=== PATIENT | male | born 1955 | race Two or more races ===

== ENCOUNTER 2023-12-08 13:15 | Outpatient (AMB) | payer OTHER, SELFPAY ==
--- NOTE | 2023-12-08 13:18 | MHC.OFFVIS ---
Vital Signs 12/08/23 13:19 Height 5 ft 1 in Weight 163 lb BMI 30.8 BP 114/82 Blood Pressure Location Rt brachial Position Sitting Pulse 81 Pulse Source Pulse Oximeter Pulse Oximetry (%) 93 Oxygen Delivery Method Room Air Intake Visit Reasons: ENP-Migraine/small vessel disease/abn MRI Intake Note: Patient presents form migraines. patient has had migraines for 20+ years and taking zolmitriptan which helps tremendously. Allergies codeine Allergy (Severe, Verified 12/08/23 13:23) hives Medication List - Last Reconciled 12/08/23 by ALEJO Marrero aspirin 81 mg PO DAILY atorvastatin 40 mg PO DAILY cetirizine 10 mg PO DAILY cholecalciferol (vitamin D3) 50 mcg PO DAILY fluticasone propionate 50 mcg/actuation 2 sprays intranasal DAILY omeprazole 20 mg PO DAILY zolmitriptan mg PO HPI Comments Details: Right-handed 67-yr-old female presents for new pt evaluation of headache disorder. Pt reports she has had migraine for at least 30 yrs w/o known precipitating cause. She notes the migraine was pretty consistent, but they decreased in 2022, however they returned in 2023, and now are more frequent and bothersome, finding the migraine is affecting her daily activities more. Pt preveiously was seen by neurology in [place] many yrs ago, but has not seen enuro in yrs. PMH and ROS are notable for:? General: glasses. Musculoskeletal disorders or injury: stiff neck, stiff shoulders Respiratory d/o: seasonal and environmental allergies CV disease: HTN HLD : h/o kidney stones GI d/o: Occassaniol GERD IBS Constipation at x's. 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 Has HST a few yrs ago- was never given results- ? SMS. Caffeine use: 1 cups per day Substance use: denies Exercise:?some exercise- some weight training, stretching at home. trying to lose weight. 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 Family planning: none Headache questionnaire:? Typical headache characteristics: Prodrome symptoms: denies- but sometimes has facial swelling. Aura: rarely may see a floating spot before the headache Pain intensity: Starts mild and can become severe Location, quality, characteristics: Unilateral (can be right or left sided, rarely bilateral) and frontal pressure to screwing type pain. If migraine is r/t allergies- it is more frontal/crown a/w bilateral facial/eye swelling. Associated symptoms: photophobia, osmophobia, allodynia, nausea, vomiting, not right in space dizziness, lightheadedness, fatigue, cognitive difficulties, activity intolerance. Sometimes ipslateral (right or left) tingling, swelling sensation. Postdrome: lingering headache, feels like she was run over by a truck. Triggers: allergies, poor sleep, weather changes Time of day: Will wake up w/ start of a headache or later in the day Duration and Frequency: Can last 3-4 days w/o tx. Frequency is weekly- a few times a week. How does headache impact your life? Unable to do her daily activities. MIDAS disability grade: IV Current acute medication use/interventions: Zomig 5mg helps some- receives 6 tabs per month. May take w/ Ibuprofen. Current preventative medication use: None. Uses her Flonase to prevent sinus s/s. Non-pharmacological interventions: Rest. [facility] Medical History (Updated 12/18/23 @ 13:51 by ALEJO Marrero) Osteoporosis Hyperlipidemia Headache Surgical History (Updated 12/08/23 @ 13:24 by ISIDORO Garcia) H/O eye surgery Hx of tonsillectomy H/O section Hx of appendectomy Family History (Updated 12/08/23 @ 13:25 by ISIDORO Garcia) Father Diabetes Heart disease Mother Diabetes Social History (Updated 12/08/23 @ 13:25 by ISIDORO Garcia) Alcohol intake: never Patient Tobacco Use Status: Never used Tobacco Physical Exam Vital Signs: Last Vital Signs Pulse 81 12/08/23 13:19 BP 114/82 12/08/23 13:19 Pulse Ox 93 12/08/23 13:19 Oxygen Delivery Method Room Air 12/08/23 13:19 BMI result Body Mass Index 30.8 Const Orientation/consciousness: patient oriented x3 Resp Effort & Inspection: normal respiratory effort and able to speak in complete sentences Neuro Other: No palpable scalp tenderness. General: patient oriented x3 Cranial nerves: Yes CN's II-XII intact bilaterally Cognition (Neuro): normal cognition Gait exam (Neuro): Normal gait present Motor exam (neuro): 5/5 motor strength present throughout Deep tendon reflexes (DTR's): Right triceps reflex intensity grade: 2+, Left triceps reflex intensity grade: 2+, Rt Biceps (C5, C6): 2+, Left biceps reflex intensity grade: 2+, Right brachioradialis reflex intensity grade: 2+, Left brachioradialis reflex intensity grade: 2+, Right patellar reflex intensity grade: 2+ and Left patellar reflex intensity grade: 2+ Coordination: [id number] test normal, tandem gait normal and Romberg test negative Pupils: Normal pupillary reactivity/response: bilateral Psych Appearance: grossly normal Mental Status: mental status grossly normal Speech and movement: Normal speech and movement present Affect: normal affect Attitude: cooperative Thought process: Normal thought process present Assessment & Plan Assessment & Plan (1) Migraine with aura: Comment: Occasionally Code(s): G43.109 - Migraine with aura, not intractable, without status migrainosus Category: Medical (2) Migraine without aura: Code(s): G43.009 - Migraine without aura, not intractable, without status migrainosus Category: Medical (3) Moderate obstructive sleep apnea: Comment: per 2021 HST (at [facility]). AHI 19/hr, average SPO2 91% w/ O2 annie 62%. Code(s): G47.33 - Obstructive sleep apnea (adult) (pediatric) Category: Medical Plan Pt to call us w/ full list of previous meds tried. Will request last HST report. For overall headache management: Optimize good self-care, including but not limited to maintaining a healthy diet, adequate fluid intake, adequate sleep, and engaging in regular physical activity. Track headaches, especially after any treatment regimen changes. Migraine [employer] is one of many headache tracking apps. For acute headache treatment: Discussed importance of taking acute medications at the first sign of headache, however stressed importance of avoiding acute medication overuse (especially with combined headache medications). Continue Zomig 5mg prn. May take w/ OTC Ibuprofen 400-600mgh q 4-6hrs prn. Previous acute migraine medication trials: Unsure. Acute migraine medication contraindications: None at this time For headache prevention medication: Preventative medications should be taken routinely as prescribed for best effect, it may take several weeks for full effect to take effect. Start Riboflavin 400mg qam Start Magnesium 400mg qhs Start Aimovig 140mg sc q month. Potential adverse effects of Aimovig, including but not limited to injection site reactions, cramps, constipation, increase in blood pressure. Previous migraine prevention medication trials: Amitriptyline- in effective. Migraine prevention medication contraindications: Topiramate d/t h/o kidney stones. Pt seen in collaboration w/ Dr Lisa Strange. Pt to follow-up in 4-6 months or sooner prn. Addendum= Reviewed previous HST report from 2021, pt would benfit from trying APAP [id number]. Will f/u with pt to discuss trying APAP vs repeating HST to assess status of sleep apnea. Medications: New erenumab-aooe (Aimovig Autoinjector) 140 mg subcut ONCE 1 mL 6RF 30 days riboflavin (vitamin B2) 400 mg PO DAILY 30 tabs 6RF 30 days zolmitriptan may repeat in 2 hrs, max 2 tabs per day 5 mg PO ONCE PRN 12 tabs 6RF migraine headache 30 days magnesium oxide may hold for loose stools 400 mg PO BEDTIME 30 tabs 6RF 30 days Coding Level of Care Code New Pt Level 4 (83944) Diagnoses Migraine with aura G43.109 Migraine without aura G43.009 Moderate obstructive sleep apnea G47.33
[2023-12-08 13:19] VITALS: BP 114/82; PULSE 81; O2SAT 93; BMI 30.8
== END 2023-12-08 14:20 | disposition home or self-care (01) ==
PROVIDERS: PCP Family Medicine; Visit Provider Nurse Practitioner Family
DX: G43.109 Migraine with aura, not intractable, without status migrainosus (principal); G43.009 Migraine without aura, not intractable, without status migrainosus; G47.33 Obstructive sleep apnea (adult) (pediatric)
CPT/HCPCS: 99204

== ENCOUNTER → 2023-12-08 13:15 | Outpatient (BNVA) | payer OTHER, SELFPAY | PROVIDERS: PCP Family Medicine; Visit Provider Nurse Practitioner Family ==

== ENCOUNTER 2024-02-23 10:03 | Outpatient (AMB) | payer OTHER, SELFPAY ==
[2024-02-23 10:04] VITALS: BMI 31.9
--- NOTE | 2024-02-23 10:04 | MHC.OFFVIS ---
Vital Signs 02/23/24 10:04 Height 5 ft 1 in Weight 169 lb BMI 31.9 Intake Visit Reasons: Follow up Intake Note: Patient presents for follow up migraines. Patient has had a migraine all this week. Allergies codeine Allergy (Severe, Verified 02/23/24 10:06) hives Medication List - Last Reconciled 02/23/24 by ALEJO Marrero aspirin 81 mg PO DAILY atorvastatin 40 mg PO DAILY cetirizine 10 mg PO DAILY cholecalciferol (vitamin D3) 50 mcg PO DAILY erenumab-aooe (Aimovig Autoinjector) 140 mg subcut ONCE 30 days fluticasone propionate 50 mcg/actuation 2 sprays intranasal DAILY magnesium oxide 400 mg PO BEDTIME 30 days omeprazole 20 mg PO DAILY riboflavin (vitamin B2) 400 mg PO DAILY 30 days zolmitriptan 5 mg PO ONCE PRN 30 days HPI Comments Details: Right-handed 67-yr-old female presents for f/u of migraine and sleep sleep disorder. Pt denies any interval medical changes. She did start Riboflavin and mga. She never rec'd the Aimovig. She has noticed an uptick in migraine attacks in the last 2 weeks - which she attributes to season change and allergies. She does use allergy tx, but this does not seem to help either her headaches or allergies. Prone to nasal congestion. Has run out of flonase. She reports 15 migraine days per week. The zomig is helpful, but sometimes the migraine does come back. Uses the zomig in [place] evening, as it makes her sleepy- which can be helpful when she is not sleeping well overall. We rec'd her 2021 HST rpeort which showed AHI 29.6/hr w/ O2 annie 62%. Endorses: Snoring, Excessive daytime sleepiness, Fatigue Initial HPI from 12/08/23: Pt reports she has had migraine for at least 30 yrs w/o known precipitating cause. She notes the migraine was pretty consistent, but they decreased in 2022, however they returned in 2023, and now are more frequent and bothersome, finding the migraine is affecting her daily activities more. Pt preveiously was seen by neurology in [place] many yrs ago, but has not seen enuro in yrs. PMH and ROS are notable for:? General: glasses. Musculoskeletal disorders or injury: stiff neck, stiff shoulders Respiratory d/o: seasonal and environmental allergies CV disease: HTN HLD : h/o kidney stones GI d/o: Occassaniol GERD IBS Constipation at x's. 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 Had HST a few yrs ago- was never given results- ? SMS. Caffeine use: 1 cups per day Substance use: denies Exercise:?some exercise- some weight training, stretching at home. trying to lose weight. 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 Family planning: none Headache questionnaire:? Typical headache characteristics: Prodrome symptoms: denies- but sometimes has facial swelling. Aura: rarely may see a floating spot before the headache Pain intensity: Starts mild and can become severe Location, quality, characteristics: Unilateral (can be right or left sided, rarely bilateral) and frontal pressure to screwing type pain. If migraine is r/t allergies- it is more frontal/crown a/w bilateral facial/eye swelling. Associated symptoms: photophobia, osmophobia, allodynia, nausea, vomiting, not right in space dizziness, lightheadedness, fatigue, cognitive difficulties, activity intolerance. Sometimes ipslateral (right or left) tingling, swelling sensation. Postdrome: lingering headache, feels like she was run over by a truck. Triggers: allergies, poor sleep, weather changes Time of day: Will wake up w/ start of a headache or later in the day Duration and Frequency: Can last 3-4 days w/o tx. Frequency is weekly- a few times a week. How does headache impact your life? Unable to do her daily activities. MIDAS disability grade: IV Current acute medication use/interventions: Zomig 5mg helps some- receives 6 tabs per month. May take w/ Ibuprofen. Current preventative medication use: None. Uses her Flonase to prevent sinus s/s. Non-pharmacological interventions: Rest. [facility] Medical History (Updated 12/18/23 @ 13:51 by ALEJO Marrero) Osteoporosis Hyperlipidemia Headache Surgical History H/O eye surgery Hx of tonsillectomy H/O section Hx of appendectomy Family History Father Diabetes Heart disease Mother Diabetes Social History Alcohol intake: never Patient Tobacco Use Status: Never used Tobacco Physical Exam Vital Signs: BMI result Body Mass Index 31.9 Const Orientation/consciousness: patient oriented x3 Resp Effort & Inspection: normal respiratory effort and able to speak in complete sentences Neuro General: patient oriented x3 Cranial nerves: Yes CN's II-XII intact bilaterally Cognition (Neuro): normal cognition Gait exam (Neuro): Normal gait present Motor exam (neuro): 5/5 motor strength present throughout Psych Appearance: grossly normal Mental Status: mental status grossly normal Speech and movement: Normal speech and movement present Affect: normal affect Attitude: cooperative Thought process: Normal thought process present Assessment & Plan Assessment & Plan (1) Migraine with aura: Comment: Occasionally Code(s): G43.109 - Migraine with aura, not intractable, without status migrainosus Category: Medical (2) Migraine without aura: Code(s): G43.009 - Migraine without aura, not intractable, without status migrainosus Category: Medical (3) Moderate obstructive sleep apnea: Comment: per 2021 HST (at [facility]). AHI 19/hr, average SPO2 91% w/ O2 annie 62%. Code(s): G47.33 - Obstructive sleep apnea (adult) (pediatric) Category: Medical Plan For moderate KALYAN: Pt advised to undergo HST to assess status of sleep apnea. Trial saline rinse- such as pressurized saline spray, f/b Flonase- we will refill, and f/b trail of Azelastine nasal spray. For overall headache management: Optimize good self-care, including but not limited to maintaining a healthy diet, adequate fluid intake, adequate sleep, and engaging in regular physical activity. Track headaches, especially after any treatment regimen changes. Migraine [employer] is one of many headache tracking apps. For acute headache treatment: Discussed importance of taking acute medications at the first sign of headache, however reviewed importance of avoiding acute medication overuse. As zomig makes her very sleepy and cannot take during the day, Trial Sumatriptan 100mg tab, 1/2 - 1 tab (50-100mg) at onset of headache, may repeat in 2 hours. Max of 2 tabs (200mg) per 24 hours. May adjunct with OTC Tylenol 650mg q 4 hours, Ibuprofen 600mg q 6 hours, or Naproxen 440mg q 12 hrs prn. Potential adverse effects of triptans, include but are not limited to nausea, fatigue, chest tightness/tingling (usually passes within a few minutes), medication overuse headaches. Continue Zomig 5mg prn. May take w/ OTC Ibuprofen 400-600mgh q 4-6hrs prn. Previous acute migraine medication trials: Unsure. Acute migraine medication contraindications: None at this time For headache prevention medication: Preventative medications should be taken routinely as prescribed for best effect, it may take several weeks for full effect to take effect. Continue Riboflavin 400mg qam Continue Magnesium 400mg qhs Again start Aimovig 140mg sc q month- order resent today. Note PA expires 03/11/24. Potential adverse effects of Aimovig, including but not limited to injection site reactions, cramps, constipation, increase in blood pressure. Previous migraine prevention medication trials: Amitriptyline- in effective. Topiramate- ineffective. Migraine prevention medication contraindications: Topiramate d/t h/o kidney stones. Will follow-up upon review of above and patient to follow-up in clinic in 6 months or sooner prn. Orders: Orders RT home sleep study Today G47.33 - Obstructive sleep apnea (adult) (pediatric) Medications: New sumatriptan succinate (0.5 - 1 x 100 mg) 50 - 100 mg orally at onset of headache, may repeat in 2 hrs PRN; max 2 tabs per day or 4 tabs/week (may take with Ibuprofen) 30 days 12 tabs 6RF migraine headache azelastine administer into each nostril 2 sprays intranasal BID 30 days 30 mL 3RF Changed From fluticasone propionate 50 mcg/actuation 2 sprays intranasal DAILY To fluticasone propionate 50 mcg/actuation 2 sprays intranasal DAILY 30 days 16 grams 3RF Refilled erenumab-aooe (Aimovig Autoinjector) 140 mg subcut ONCE 30 days 1 mL 6RF Coding Level of Care Code Est Pt Level 4 (52577) Diagnoses Migraine with aura G43.109 Migraine without aura G43.009 Moderate obstructive sleep apnea G47.33
== END 2024-02-23 11:21 | disposition home or self-care (01) ==
PROVIDERS: PCP Family Medicine; Visit Provider Nurse Practitioner Family
DX: G43.109 Migraine with aura, not intractable, without status migrainosus (principal); G43.009 Migraine without aura, not intractable, without status migrainosus; G47.33 Obstructive sleep apnea (adult) (pediatric)
CPT/HCPCS: 99214

== ENCOUNTER 2024-08-20 10:26 | Outpatient (AMB) | payer OTHER, SELFPAY ==
--- NOTE | 2024-08-20 10:32 | A.OFFVIS_ITS ---
Vital Signs 08/20/24 10:34 Height 5 ft 1 in Weight 169 lb BMI 31.9 BP 120/84 Blood Pressure Location Rt brachial Position Sitting Pulse 83 Pulse Source Pulse Oximeter Pulse Oximetry (%) 96 Oxygen Delivery Method Room Air Intake Visit Reasons: 6 mo follow up Intake Note: Patient presents 6 month follow up for migraines. Medical Records Technician Required: No Accompanied by: Self / Same As Patient Allergies codeine Allergy (Severe, Verified 08/20/24 10:34) hives Medication List - Last Reconciled 08/20/24 by ALEJO Marrero aspirin 81 mg PO DAILY atorvastatin 40 mg PO DAILY azelastine 2 sprays intranasal BID 30 days cetirizine 10 mg PO DAILY cholecalciferol (vitamin D3) 50 mcg PO DAILY erenumab-aooe (Aimovig Autoinjector) 140 mg subcut ONCE 30 days fluticasone propionate 50 mcg/actuation 2 sprays intranasal DAILY 30 days magnesium oxide 400 mg PO BEDTIME 30 days omeprazole 20 mg PO DAILY riboflavin (vitamin B2) 400 mg PO DAILY 30 days riboflavin (vitamin B2) 400 mg PO DAILY sumatriptan succinate 50 - 100 mg orally at onset of headache, may repeat in 2 hrs PRN; max 2 tabs per day or 4 tabs/week (may take with Ibuprofen) 30 days zolmitriptan 5 mg PO ONCE PRN 30 days HPI Comments Details: Right-handed 68-yr-old female presents for f/u of migraine and sleep sleep disorder. Pt denies any interval medical changes. Pt reports her migraines have decreased except when she is having more allergy s/s. She states mag, B2, and azelastine do help- but has not had a refill on nasal sprays in some time. She reports 3-4 days per week when she is having allergy symptoms, and then none for a week or so. Did not start aimovig d/t cost- co-pay is greater than 300 dollars per month. The zomig is helpful. 2021 HST report which showed AHI 29.6/hr w/ O2 annie 62%. Having more difficulty falling asleep. Continues to endorse snoring, excessive daytime sleepiness, fatigue. She notes that she will often fall asleep after dinner watching TV the couch, however when she wakes up and does her bedtime routine, then she is wide awake again. She states that her watches the TV in bed, and it is loud as he is hard of hearing, so she does weight until later to go to bed. Pt did not have HST after the last visit- unclear why. Initial HPI from 12/08/23: Pt reports she has had migraine for at least 30 yrs w/o known precipitating cause. She notes the migraine was pretty consistent, but they decreased in 2022, however they returned in 2023, and now are more frequent and bothersome, finding the migraine is affecting her daily activities more. Pt preveiously was seen by neurology in [place] many yrs ago, but has not seen enuro in yrs. PMH and ROS are notable for:? General: glasses. Musculoskeletal disorders or injury: stiff neck, stiff shoulders Respiratory d/o: seasonal and environmental allergies CV disease: HTN HLD : h/o kidney stones GI d/o: Occassaniol GERD IBS Constipation at x's. 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 Had HST a few yrs ago- was never given results- ? SMS. Caffeine use: 1 cups per day Substance use: denies Exercise:?some exercise- some weight training, stretching at home. trying to lose weight. 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 Family planning: none Headache questionnaire:? Typical headache characteristics: Prodrome symptoms: denies- but sometimes has facial swelling. Aura: rarely may see a floating spot before the headache Pain intensity: Starts mild and can become severe Location, quality, characteristics: Unilateral (can be right or left sided, rarely bilateral) and frontal pressure to screwing type pain. If migraine is r/t allergies- it is more frontal/crown a/w bilateral facial/eye swelling. Associated symptoms: photophobia, osmophobia, allodynia, nausea, vomiting, not right in space dizziness, lightheadedness, fatigue, cognitive difficulties, activity intolerance. Sometimes ipslateral (right or left) tingling, swelling sensation. Postdrome: lingering headache, feels like she was run over by a truck. Triggers: allergies, poor sleep, weather changes Time of day: Will wake up w/ start of a headache or later in the day Duration and Frequency: Can last 3-4 days w/o tx. Frequency is weekly- a few times a week. How does headache impact your life? Unable to do her daily activities. MIDAS disability grade: IV Current acute medication use/interventions: Zomig 5mg helps some- receives 6 tabs per month. May take w/ Ibuprofen. Current preventative medication use: None. Uses her Flonase to prevent sinus s/s. Non-pharmacological interventions: Rest. [facility] Medical History (Updated 08/20/24 @ 13:04 by ALEJO Marrero) Osteoporosis Hyperlipidemia Headache Surgical History H/O eye surgery Hx of tonsillectomy H/O section Hx of appendectomy Family History Father Diabetes Heart disease Mother Diabetes Social History Alcohol intake: never Patient Tobacco Use Status: Never used Tobacco Physical Exam Vital Signs: Last Vital Signs Pulse 83 08/20/24 10:34 BP 120/84 08/20/24 10:34 Pulse Ox 96 08/20/24 10:34 Oxygen Delivery Method Room Air 08/20/24 10:34 BMI result Body Mass Index 31.9 Const Orientation/consciousness: patient oriented x3 Resp Effort & Inspection: normal respiratory effort and able to speak in complete sentences Neuro General: patient oriented x3 Cranial nerves: Yes CN's II-XII intact bilaterally Cognition (Neuro): normal cognition Gait exam (Neuro): Normal gait present Motor exam (neuro): 5/5 motor strength present throughout Psych Appearance: grossly normal Mental Status: mental status grossly normal Speech and movement: Normal speech and movement present Affect: normal affect Attitude: cooperative Thought process: Normal thought process present Assessment & Plan Assessment & Plan (1) Migraine without aura: Code(s): G43.009 - Migraine without aura, not intractable, without status migrainosus Category: Medical Qualifiers: Status migrainosus presence: without status migrainosus Intractability: not intractable Qualified Code(s): G43.009 - Migraine without aura, not intractable, without status migrainosus (2) Moderate obstructive sleep apnea: Comment: per 2021 HST (at [facility]). AHI 19/hr, average SPO2 91% w/ O2 annie 62%. Code(s): G47.33 - Obstructive sleep apnea (adult) (pediatric) Category: Medical (3) Sleep difficulties: Code(s): G47.9 - Sleep disorder, unspecified Category: Medical (4) Migraine with aura: Comment: Occasionally Code(s): G43.109 - Migraine with aura, not intractable, without status migrainosus Category: Medical Plan For moderate KALYAN: Pt is again advised to undergo HST to assess status of sleep apnea. Continue saline nasal rinse- such as pressurized saline spray, f/b Flonase, and f/b Azelastine nasal spray- we will refill. Reviewed general sleep education principles, including simple strategies to optimize sleep hygiene and sleep quality. List of sleep resources shared w/pt, such as the book Say Lori to Insomnia by Dr Jaxon Tillman. Patient may try using loupe ear plugs, to mitigate noise from her watching the television. To may also benefit from doing her bedtime routine, after dinner rather than right before bedtime, as this tends to wake her backup. For overall headache management: * Optimize good self-care, including but not limited to maintaining a healthy diet, adequate fluid intake, adequate sleep, and engaging in regular physical activity. * Track headaches, especially after any treatment regimen changes. Migraine [employer] is one of many headache tracking apps. For acute headache treatment: Discussed importance of taking acute medications at the first sign of headache, however reviewed importance of avoiding acute medication overuse. As zomahi makes her very sleepy and cannot take during the day. Sumatriptan 100mg tab, 1/2 - 1 tab (50-100mg) at onset of headache, may repeat in 2 hours. Max of 2 tabs (200mg) per 24 hours. May adjunct with OTC Tylenol 650mg q 4 hours, Ibuprofen 600mg q 6 hours, or Naproxen 440mg q 12 hrs prn. Potential adverse effects of triptans, include but are not limited to nausea, fatigue, chest tightness/tingling (usually passes within a few minutes), medication overuse headaches. Continue Zomig 5mg prn. May take w/ OTC Ibuprofen 400-600mgh q 4-6hrs prn. Previous acute migraine medication trials: Unsure. Acute migraine medication contraindications: None at this time For headache prevention medication: Preventative medications should be taken routinely as prescribed for best effect, it may take several weeks for full effect to take effect. Continue Riboflavin 400mg qam Continue Magnesium 400mg qhs Start c0-q 10 400mg qam- w/ food. Start cyproheptadine 4mg qhs- may help sleep initiation and allergy s/s as well. Reviewed common side effects, including sleepiness and increased gisell etite/weight gain. From Discontinue Aimovig 140mg sc q month- not an affordable option. Potential adverse effects of Aimovig, including but not limited to injection site reactions, cramps, constipation, increase in blood pressure. Previous migraine prevention medication trials: Amitriptyline- in effective. Topiramate- ineffective. Migraine prevention medication contraindications: Topiramate d/t h/o kidney stones. Will follow-up upon review of above and patient to follow-up in clinic in 6 months or sooner prn. Orders: Orders RT home sleep study Today G47.33 - Obstructive sleep apnea (adult) (pediatric), G47.9 - Sleep disorder, unspecified Medications: New coenzyme Q10 (CoQ-10) 400 mg (4 x 100 mg) PO DAILY 30 days 120 caps 3RF cyproheptadine 4 mg PO BEDTIME 30 days 30 tabs 3RF migraine prevention and allergies Refilled magnesium oxide may hold for loose stools 400 mg PO BEDTIME 30 days 30 tabs 6RF zolmitriptan may repeat in 2 hrs, max 2 tabs per day 5 mg PO ONCE 30 days PRN 12 tabs 6RF migraine headache fluticasone propionate 50 mcg/actuation 2 sprays intranasal DAILY 30 days 16 grams 6RF riboflavin (vitamin B2) 400 mg PO DAILY 30 days 30 tabs 6RF azelastine administer into each nostril 2 sprays intranasal BID 30 days 30 mL 6RF Discontinued erenumab-aooe (Aimovig Autoinjector) Discontinued Reason: Doctor's Order 140 mg subcut ONCE 30 days 1 mL 6RF Coding Level of Care Code Est Pt Level 4 (97125) Diagnoses Migraine without aura and without status migrainosus, not intractable G43.009 Status migrainosus presence: without status migrainosus Intractability: not intractable Moderate obstructive sleep apnea G47.33 Sleep difficulties G47.9 Migraine with aura G43.109
[2024-08-20 10:34] VITALS: BP 120/84; PULSE 83; O2SAT 96; BMI 31.9
--- OUTSIDE RECORDS SUMMARY | 2024-08-20 11:58 | XMS_ITS | Clinical Summary ---
Author Organization [facility] Address [address] [place] [address] Care Team Providers Care Police Superintendent Name Role Phone Unavailable Primary Care Provider Unavailabl e Allergies Active Allergy Reactions Criticality Noted Date Comments Codeine 08/07/2017 Medications Medication Sig Dispensed Refills Start Date End Date Status PROAIR HFA 108 (90 Base) MCG/ACT inhaler INHALE 2 PUFFS PO Q 4 H PRF COUGH OR WHEEZING 0 06/06/2017 Active cetirizine (ZYRTEC) 10 MG tablet TK 1 T PO D PRF ALLERGIES 5 06/26/2017 Active fluticasone (FLONASE) 50 MCG/ACT nasal spray SHAKE LQ AND U 2 SPRAYS IEN D 5 06/26/2017 Active ZOLMitriptan (ZOMIG) 5 MG tablet 0 07/26/2017 Active Family History Medical History Relation Name Comments Diabetes Father Heart disease Father Relation Name Status Comments Father Social History Tobacco Use Types Packs/Day Years Used Date Smoking Tobacco: Former Smokeless Tobacco: Never Comments:havent smoked in 40 yrs pt was a social smoker' Alcohol Use Standard Drinks/Week Comments No 0 (1 standard drink = 0.6 oz pur e alcohol) Sex and Gender Information Value Date Recorded Sex Assigned at Not on file Gender Identity Not on file Sexual Orientation Not on file Last Filed Vital Signs Vital Sign Reading Time Taken Comments Blood Pressure 120/70 08/07/2017 9:10 AM EDT Pulse - - Temperature - - Respiratory Rate - - Oxygen Saturation - - Inhaled Oxygen Concentration - - Weight 68.5 kg (151 lb) 08/07/2017 9:10 AM EDT Height 154.9 cm (5' 1 ) 08/07/2017 9:10 AM EDT Body Mass Index 28.53 08/07/2017 9:10 AM EDT Plan of Treatment Health Maintenance Due Date Last Done Comments Hepatitis C Screening 1955 COVID-19 Vaccine (#1) 06/14/1957 Depression Screening 1968 Preventative Health Evaluation 1974 DTap / Tdap / Td (1 - Tdap) 12/16/1975 Colon Cancer Screening (Colonoscopy) 2001 Breast Cancer Screening (Mammogram) 2006 Shingrix-Zoster Vaccine (1 of 2) 2006 Fall Risk Assessment 2021 Osteoporosis Screening (DEXA Scan) 2021 Pneumococcal Vaccine (1 of 1 - PCV) 2021 Influenza Vaccine (#1) 2023 RSV Adult > 60+ Yrs or Pregn ant (1 - 1-dose 75+ series) 12/16/2031 Hepatitis B Vaccines Aged Out No long er eligible based on patient's age to complete this topic RSV Ped < 20 months Aged Out No longe r eligible based on patient's age to complete this topic
== END 2024-08-20 11:15 | disposition home or self-care (01) ==
LOC: HO.HSMS 10:26
PROVIDERS: PCP Family Medicine; Visit Provider Nurse Practitioner Family
DX: G43.009 Migraine without aura, not intractable, without status migrainosus (principal); G47.33 Obstructive sleep apnea (adult) (pediatric); G47.9 Sleep disorder, unspecified; G43.109 Migraine with aura, not intractable, without status migrainosus
CPT/HCPCS: 99214

== ENCOUNTER → 2024-12-04 11:07 | Outpatient (REF) | payer MEDICARE, SELFPAY ==
--- OUTSIDE RECORDS SUMMARY | 2024-12-04 12:30 | XMS_ITS | Clinical Summary ---
Author Organization [employer] [facility] Address [address] [place] [address] Care Team Providers Care Polygraph Operator Name Role Phone Unavailable Primary Care Provider [...] 1 - PCV) 2021 Influenza Vaccine (#1) 2024 RSV Adult > 60+ Yrs or Pregn ant (1 - 1-dose 75+ series) 12/16/2031 Hepatitis B Vaccines Aged Out No long er eligible based on patient's age to complete this topic RSV Ped < 20 months Aged Out No longe r eligible based on patient's age to complete this topic
== END ==
LOC: HO.SL 11:07
PROVIDERS: PCP Family Medicine; Visit Provider Nurse Practitioner Family
DX: G47.33 Obstructive sleep apnea (adult) (pediatric) (principal)
CPT/HCPCS: 95806

== ENCOUNTER → 2025-03-31 19:30 | Outpatient (REF) | payer MEDICARE, SELFPAY ==
--- OUTSIDE RECORDS SUMMARY | 2025-03-31 22:55 | XMS_ITS | Clinical Summary ---
Author Organization [facility] Prior to 09/14/24 Address [address] [place] [address] Care Team Providers Care Procedures Rn Name Role Phone Unavailable Primary Care Provider [...]
--- OUTSIDE RECORDS SUMMARY | 2025-03-31 22:55 | XMS_ITS | Clinical Summary ---
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 08/29/19 24 Active omeprazole (PriLOSEC) [address] capsule Take 1 Capsule by mouth daily for 90 days. 08/04/19 24 Active riboflavin (VITAMIN B2) 400 mg tablet Take 1 tablet (400 mg total) by mouth 1 (one) time each day. 08/21/19 25 Active magnesium oxide (MAG-OX) 400 mg (241.3 elemental magnesium) tablet Take 1 tablet (400 mg total) by mouth 1 (one) time each day. 09/12/19 25 Active cyproheptadine (PERIACTIN) 4 mg tablet Take 1 tablet (4 mg total) by mouth at bedtime. 08/21/19 25 Active azelastine (ASTELIN) 137 mcg (0.1 %) nasal spray Administer 2 sprays into each nostril 2 (two) times a day. 08/22/19 25 Active ZOLMitriptan (ZOMIG) 5 mg tablet Take 1 tablet (5 mg total) by mouth 1 (one) time if needed for migraine. May repeat in 2 hours if unresolved. Do not exceed 10 mg in 24 hours. 3 tablet 3 09/25/19 25 Active cholecalciferol (VITAMIN D-3) 50 mcg (2,000 unit) capsule TAKE 1 CAPSULE BY MOUTH EVERY DAY 90 capsule 1 10/04/19 25 Active cetirizine (ZyrTEC) 10 mg tablet TAKE 1 TABLET BY MOUTH DAILY 90 tablet 1 10/04/19 25 Active hydroCHLOROthiazid e (HYDRODIURIL) 25 mg tabletIndications: Primary hypertension Take 1 tablet (25 mg total) by mouth 1 (one) time each day. 90 each 1 11/12/19 25 026 Active bisacodyL (DULCOLAX) 5 mg EC tablet Take 2 tablets by mouth right before beginning bowel prep. See instructions provided by the office 2 tablet 11/15/19 25 Active atorvastatin (LIPITOR) 40 mg tabletIndications: Mixed hyperlipidemia Take 1 tablet (40 mg total) by mouth at bedtime. at bedtime. 90 tablet 1 12/10/19 25 026 Active alendronate (FOSAMAX) 70 mg tablet Take 1 tablet (70 mg total) by mouth every 7 (seven) days. 1 tablet weekly on an empty stomach, remain upright for at least 30 minutes 4 each 01/03/20 25 026 Active aspirin 81 mg EC tablet TAKE 1 TABLET BY MOUTH EVERY DAY 90 tablet 1 02/01/20 25 Active Active Problems Problem Noted Date Diagnosed Date Venous insufficiency of right leg 01/28/2025 Primary hypertension 12/09/2024 Assessment & Plan (12/09/2024 11:28 AM EDT): Well controlled Continue HCTZ 25mg daily Prediabetes 11/08/2024 Assessment & Plan (12/09/2024 11:28 AM EDT): Continue with lifestyle mgt Orders: Hemoglobin A1c; Future Assessment & Plan (11/11/2024 2:55 PM EDT): Due for updated A1c. Her last A1c in July was 5.7. Orders: Hemoglobin A1c; Future Class 1 obesity due to exces s calories with serious comorbidity and body mass index (BMI) of 30.0 to 30.9 in adult 01/26/2024 Cerebral microvascular disease 11/03/2023 Degenerative joint disease (DJD) of lumbar spine 08/07/2023 Calcific Achilles tendinitis of right lower extr emity 08/07/2023 Gastroesophageal reflux disease without esophagi tis 08/04/2023 Primary insomnia 08/04/2023 Seasonal allergic rhinitis 05/19/2023 Nonalcoholic fatty liver disease 08/30/2018 Hyperlipidemia 03/17/2016 Assessment & Plan (12/09/2024 11:28 AM EDT): Continue atorvastatin Orders: atorvastatin (LIPITOR) 40 mg tablet; Take 1 tablet (40 mg total) by mouth at bedtime. at bedtime. Osteoporosis 07/14/2015 Assessment & Plan (12/09/2024 11:28 AM EDT): Referred to endocrinology for consideration of prolia or reclast Continue vitamin D daily Orders: Ambulatory referral to Endocrinology; Future Hematuria 10/15/2013 Overview (01/26/2024): Dr. Adrian Migraines 07/20/2011 Overview (01/26/2024): Worse in past; triggered by allergies. Zolmig prn and also takes allergy medication RBBB (right bundle branch block) 07/20/2011 Overview (01/26/2024): 09/29- stress echo nad Noted on ECG 07/20/11 in V1 only. Holter NSR w/1 PVC and 4 PACs Stress ECHO normal Encounters Date Type Department Care Team Description 01/28/2025 Results Follow-Up Adult Medicine [address] [phone] Martina Pedraza MD 01/27/2025 10:00 AM EDT Ancillary Procedure [facility] [address] [place] [address] Varicose veins of both legs with edema 01/02/2025 11:30 AM EDT Office Visit Endocrinology [address] [phone] Cheli Lama PA Osteoporosis, unspecified osteoporosis type, unspecified pathological fracture presence (Primary Dx) from Last 3 Months Immunizations Immunization Administration Dates Next Due Influenza Quadravalent, MDCK , 0.5ml, preservative free (Flucelvax) 6mo and older 03/02/2018 Influenza trivalent, with pr eservative (Fluzone; Afluria) 6mo and older 02/21/2014 Moderna SARS-CoV-2 COVID-19, mRNA, LNP-S, preservative free 08/13/2020,07/16/2020 Pneumococcal conjugate 20 va lent (Prevnar 20, PCV 20) 2mo and older 08/04/2023 Tdap Tetanus diptheria acell ular pertussis (Boostrix; Adacel) 7yo and older 08/04/2023,07/20/2011 Surgical History Surgery Date Site/Laterality Comments SECTION PROCEDURE: IA DELIVERY ONLY; COMMENT: x3 OTHER SURGICAL HISTORY PROCEDURE: IA LIG/TRNSXJ FLP TUBE ABDL/VAG APPR UNI/BI EYE SURGERY PROCEDURE: HISTORICAL EYE SURGERY; COMMENT: corrective (lazy eye) x 3 TONSILLECTOMY PROCEDURE: HISTORICAL TONSILLECTOMY COLONOSCOPY 10/13/14 PROCEDURE: HISTORICAL COLONOSCOPY; COMMENT: hemorrhoids; repeat in 10 yrs BREAST BIOPSY Right PROCEDURE: BX BREAST; PERC NEEDLE CORE W/IMAG GUID; COMMENT: ? side cyst drained/removed Medical History Medical History Date Comments Other specified personal his tory presenting hazards to health(V15.89) 1999 DX:Other specifie d personal history presenting hazards to health(V15.89); COMMENT: colpo ISHMAEL I Nonalcoholic fatty liver disease 08/30/2018 DX:Nonalcoholic fatty liver disease Hyperlipidemia Hypertension GERD (gastroesophageal reflux disease) History of kidney stones Family History Medical History Relation Name Comments Ovarian cancer Aunt maternal; and mothers cousin Breast cancer Maternal Grandmother 70s Diabetes Sister Colon cancer Neg Hx Relation Name Status Comments Aunt Brother Alive healthy Father Quad bypass; ca rotid art stents, mini strokes, DM Maternal Grandmother 70s Mother Alive healthy Sister Alive 2 sister DM ( obese) Social History Tobacco Use Types Packs/Day Years Used Date Smoking Tobacco: Former Cigarettes 6 0 04/17/1973 - 04/17/1979 Smokeless Tobacco: Never Tobacco Cessation:Counseling Given: Not Answered Alcohol Use Standard Drinks/Week Comments No 0 (1 standard drink = 0.6 oz pur e alcohol) Housing Instability Answer Date Recorde d Are you worried that in the next 2 months you may not have stable housing? No 11/10/2024 Food Access & Nutrition Answer Date Rec orded Do you have access to a vari ety of food including fruits and vegetables? Yes 11/10/2024 Access to Healthcare Answer Date Record ed Within the last 3 months, ho w many times did you visit the emergency department for your medical care? 0 11/10/2024 Health Literacy Answer Date Recorded How often do you need to hav e someone help you when you read instructions, pamphlets, or other written material from your doctor or pharmacy? Never 11/10/2024 Caregiver: How often do you need to have someone help you when you read instructions, pamphlets, or other written material from your doctor or pharmacy? Not on file 11/10/2024 Financial Risk Answer Date Recorded How hard is it for you to pa y for the very basics like food, housing, medical care, and air conditioning / heating? Not very hard 11/10/2024 Transportation Answer Date Recorded Has the lack of transportati on kept you from meetings, work, or from getting things needed for daily living? No Has the lack of transportati on kept you from medical appointments or from getting medications? No 11/10/2024 Social Isolation Answer Date Recorded How often do you feel lonely or isolated from th ose around you? Rarely 11/10/2024 Food Risk Answer Date Recorded Within the past 12 months we worried whether our food would run out before we got money to buy more. Never true 11/10/2024 Within the past 12 months th e food we bought just didn't last and we didn't have money to get more. Never true 11/10/2024 Dependent Care Answer Date Recorded Do you need help finding or paying for care for your loved ones. For example, child care centre director or elderly care for an older adult? No 11/10/2024 Education Answer Date Recorded Do you think completing more education or training, like finishing a GED, going to college, or learning a trade, would be helpful for you? N/A 11/10/2024 Employment and Income Answer Date Recor ded During the last four weeks, have you been actively looking for work? No 11/10/2024 Living Situation Answer Date Recorded What is your living situation? Unrecognized valu e 11/10/2024 Interpersonal Safety Answer Date Record ed Physical Abuse Unrecognized value 11/28/2024 Verbal Abuse Unrecognized value 11/28/2024 Comments No Sex and Gender Information Value Date Recorded Sex Assigned at Female 09/23/2024 11:43 AM EDT Legal Sex Female 5:41 PM EST Gender Identity Female 09/23/2024 11:43 AM EDT Sexual Orientation Not on file Obstetrics History Para Term AB IAB SAB Ectopic Multiple Livin g Live Births 3 3 3 3 Date Outcome GA Total Labor Labor/2nd/3rd Weight Sex Type Anes PTL Pia A1 A5 Name Clin Term Term Term Last Filed Vital Signs Vital Sign Reading Time Taken Comments Blood Pressure 124/82 01/02/2025 11:32 AM EDT Pulse 75 01/02/2025 11:32 AM EDT Temperature 36.1 C (96.9 F) 01/02/2025 11:32 AM EDT Respiratory Rate 16 12/09/2024 10:58 AM EDT Oxygen Saturation 100% 11/28/2024 2:24 PM EDT Inhaled Oxygen Concentration - - Weight 76.2 kg (168 lb) 01/02/2025 11:32 AM EDT Height 154.9 cm (5' 1 ) 01/02/2025 11:32 AM EDT Body Mass Index 31.74 01/02/2025 11:32 AM EDT Plan of Treatment Upcoming Encounters Date Type Department Care Team (Late st Contact Info) Description 04/02/2025 10:00 AM EST Office Visit Adult Medicine [address] [phone] Martina Pedraza MD [address] [place] [address] 04/29/2025 11:30 AM EST Office Visit Endocrinology - [place] [address] [place] [address] Nikki Shankar PA [address] [place] [address] 04/29/2025 1:30 PM EST Consult Vascular Surgery - [place] [address] [place] [address] Tami Ibarra PA [address] [facility] [address] [place] [address] Health Maintenance Due Date Last Done Comments Medicare Annual Wellness Visit 11/02/2024 11/03/2023 COVID-19 Vaccine ( season) 2024 08/13/2020, 07/16/2020 Zoster Vaccines (2 of 2) 02/11/2025 12/17/2024 Hypertension/CHF/CAD Annual BMP Blood Test 11/07/2025 11/07/2024, 12/20/2023, 12/20/2023 Social Influencers of Health Screening 11/10/2025 11/10/2024 Falls Risk Assessment 11/28/2025 11/28/2024, 024 Breast Cancer Screening 11/29/2026 11/30/19, 05/19/2023, 05/16/2022, Additional history exists Cholesterol Screening (Lipid Panel) 11/07/2029 11/07/2024, 12/20/2023, 12/20/2023 RSV Immunization Adult Patients (1 - 1-dose 75+ series) 12/16/2031 DTaP,Tdap,and Td Vaccines (3 - Td or Tdap) 08/03/2033 08/04/2023, 07/20/2011 Colorectal Cancer Screening: Colonoscopy 11/28/2034 11/28/2024, 10/13/2014 Osteoporosis Screening (Bone Density Screening) 12/03/2034 12/03/2024, 10/08/2020, 08/08/2016 Hepatitis C Screening Completed 09/05/2016 Pneumococcal Vaccine: 50+ Years Completed 08/04/2023 Depression Screening Completed 11/10/2024, 11/03/19 24 Influenza Vaccine Completed 12/17/2024, , 02/21/2014 HIB Vaccines Aged Out No longer eligi ble based on patient's age to complete this topic HPV Vaccines Aged Out No longer eligi ble based on patient's age to complete this topic Hepatitis A Vaccines Aged Out No long er eligible based on patient's age to complete this topic Hepatitis B Vaccines Aged Out No long er eligible based on patient's age to complete this topic IPV Vaccines Aged Out No longer eligi ble based on patient's age to complete this topic MMR Vaccines Aged Out No longer eligi ble based on patient's age to complete this topic Meningococcal ACWY Vaccine Aged Out N o longer eligible based on patient's age to complete this topic Meningococcal B Vaccine Aged Out No l onger eligible based on patient's age to complete this topic RSV Immunization Patients Under 20 months Aged Out No longer eligible based on patient's age to complete this topic Varicella Vaccines Aged Out No longer eligible based on patient's age to complete this topic Procedures Procedure Name Priority Date/Time Associated Diagnosis Comments VAS US DUPLEX LOWER EXT VENOUS INSUFFICIENCY BILATERAL Routine 01/27/2025 10:30 AM EDT Varicose veins of both legs with edema BD BONE DENSITY DXA AXIAL SKELETON Routine 12/03/2024 2:38 PM EDT Encounter for screening for osteoporosis Asymptomatic menopausal state MG MAMMO DIGITAL SCREENING W LUIZ BILAT Routine 11/29/2024 1:12 PM EDT Visit for screening mammogram COLONOSCOPY Routine 11/28/2024 2:03 PM EDT Colon cancer screening BASIC METABOLIC PANEL Routine 11/07/2024 9:57 AM EDT Elevated blood pressure reading without diagnosis of hypertension LIPID PANEL WITH REFLEX TO DIRECT LDL Routine 11/07/2024 9:57 AM EDT Mixed hyperlipidemia DEPRESSION SCREENING Routine 11/03/2023 FALLS RISK ASSESSMENT Routine 11/03/2023 HEPATITIS C SCREENING Routine 09/05/2016 from Last 3 Months or Most Recently Relevant to Health Maintenance Results * Vascular US duplex lower extremity venous insufficiency bilateral (01/27/2025 10:30 AM EDT) Left GSK rk 0.47 cm CV VAS LAB Left GSDC rk 0.29 cm CV VAS LAB Left GSMT rk 0.39 cm CV VAS LAB Left GSPC rk 0.35 cm CV VAS LAB Left GSPT rk 0.47 cm CV VAS LAB Left SFJ Diameter 0.62 cm CV VAS LAB Left SSMC rk 0.10 cm CV VAS LAB Left SSPC rk 0.27 cm CV VAS LAB Right GSK rk 0.24 cm CV VAS LAB Right GSDC rk 0.28 cm CV VAS LAB Right GSPC rk 0.25 cm CV VAS LAB Right pop reflux 2,850 ms CV VAS LAB Right SFJ Diameter 0.50 cm CV VAS LAB Right SSMC rk 0.20 cm CV VAS LAB Right SSPC rk 0.33 cm CV VAS LAB Right AAS rk 0.23 cm CV VAS LAB Anatomical Region Laterality Modality Vascular, Abdomen Ultrasound Narrative 01/27/2025 12:50 PM EDT RIGHT. 1. No evidence of deep vein thrombosis. 2. The saphenofemoral junction, common femoral, and mid femoral veins are competent. 2.9 seconds of reflux in the popliteal vein. 3. No superficial venous thrombosis. 4. No venous reflux noted in the saphenopopliteal junction or small saphenous vein. 5. No venous reflux noted in the greater saphenous vein. 6. 1.7 seconds of reflux in a knee greater saphenous vein branch. LEFT. 1. No evidence of deep vein thrombosis. 2. The saphenofemoral junction, common femoral, femoral, and popliteal veins are competent. 3. No superficial venous thrombosis. 4. No venous reflux noted in the saphenopopliteal junction or small saphenous vein. 5. No venous reflux noted in the greater saphenous vein. Right Lower Venous No evidence of deep vein thrombosis in the common femoral, deep femoral, proximal femoral, mid femoral, distal femoral, popliteal, greater saphenous, small saphenous, posterior tibial and peroneal veins of the right leg. The vessels showed compressibility. Interrogation showed phasic and spontaneous Doppler signals. The right greater saphenous vein is only seen at the knee and calf. Patient has a history of vein stripping. Right Venous Insufficiency Duplex The exam was performed with the patient in reverse Trendelenburg. Refluxing right greater saphenous branch: 0.23cm diameter knee= 1660ms Left Lower Venous No evidence of deep vein thrombosis in the common femoral, deep femoral, proximal femoral, mid femoral, distal femoral, popliteal, greater saphenous, small saphenous, posterior tibial and peroneal veins of the left leg. The vessels showed compressibility. Interrogation showed phasic and spontaneous Doppler signals. Left Venous Insufficiency Duplex The exam was performed with the patient in reverse trendelenburg. Maternity Nurse Details A jackson scale, color and doppler analysis ultrasound was performed. During the study longitudinal and transverse views were obtained. Pulsed wave doppler was performed. us Martina Pedraza MD CV VASCULAR PROC EDURES Final Result * BD Bone Density DXA Axial Skeleton (12/03/2024 2:38 PM EDT) Anatomical Region Laterality Modality Wrist, Hip, L-spine Bone Densito metry 12/04/2024 12:3 0 PM EDT Impressions 12/04/2024 12:32 PM EDT Impression: Osteoporosis by WHO criteria. The [facility] Department of Internal Medicine recommends using National Osteoporosis Foundation (NOF) guidelines in treatment decisions related to osteoporosis. NOF guidelines suggest considering treatment for postmenopausal women and men aged 50 or older presenting with the following: History of hip or vertebral fracture. T-score = -2.5 (DXA) at the femoral neck, total hip, or spine, after appropriate evaluation to exclude secondary causes. Low bone mass (T-score between -1.0 and -2.5 at the femoral neck or spine) AND a 10-year probability of a hip fracture = 3% OR a 10-year probability of a major osteoporosis-related fracture = 20% based on the [place]-adapted WHO algorithm Please note that all treatment decisions require clinical judgment and consideration of individual patient factors, including patient preferences, co-morbidities, previous drug use, risk factors not captured in the FRAX model (e.g., frailty, falls, vitamin D deficiency, increased bone turnover, interval significant decline in bone density) and possible under- or over-estimation of fracture risk by FRAX. Optional alternative screening schedule based on mary jane Kern., [facility] May 05, 2011 for patients with osteopenia (based on hip BMD T-score) is as follows: * advanced osteopenia (T scores -2.00 to -2.49), BMD testing every year * moderate osteopenia (T scores -1.50 to -1.99), BMD testing every 5 years mild osteopenia or normal BMD (T scores -1.50 and higher), BMD testing every 15 years -------- FINAL REPORT -------- Dictated By: Rosamaria Foster Dictated Date: 12/04/2024 12:30 ET Assigned Physician: Rosamaria Foster Reviewed and Electronically Signed By: Rosamaria Foster Signed Date: 12/04/2024 12:32 ET Workstation ID: [id number] Transcribed By: Self Edit Transcribed Date: 12/04/2024 12:30 ET Narrative 12/04/2024 12:32 PM EDT BONE DENSITY (DEXA) Lumbar Spine T-score is -2.3. (SD relative to 20-29 y/o adult) Z-score is -0.3. (SD relative to age matched peers) This is considered osteopenia by WHO criteria. Left Hip T-score is -2.8. Z-score is -1.1. This is considered osteoporosis by WHO criteria. Comparison exam(s): Statistically decreased bone mineral density in the lumbosacral spine. Confidence level is +/-95%. Procedure Note Rosamaria Foster MD - 12/04/2024 BONE DENSITY (DEXA) Lumbar Spine T-score is -2.3. (SD relative to 20-29 y/o adult) Z-score is -0.3. (SD relative to age matched peers) This is considered osteopenia by WHO criteria. Left Hip T-score is -2.8. Z-score is -1.1. This is considered osteoporosis by WHO criteria. Comparison exam(s): Statistically decreased bone mineral density in thelumbosacral spine. Confidence level is +/-95%. IMPRESSION: Impression: Osteoporosis by WHO criteria. The [facility] Department of Internal Medicine recommendsusing National Osteoporosis Foundation (NOF) guidelines in treatmentdecisions related to osteoporosis. NOF guidelines suggest consideringtreatment for postmenopausal women and men aged 50 or older presentingwith the following: History of hip or vertebral fracture. T-score = -2.5 (DXA) at the femoral neck, total hip, or spine, afterappropriate evaluation to exclude secondary causes. Low bone mass (T-score between -1.0 and -2.5 at the femoral neck or spine)AND a 10-year probability of a hip fracture = 3% OR a 10-year probabilityof a major osteoporosis-related fracture = 20% based on the [place]-adapted WHOalgorithm Please note that all treatment decisions require clinical judgment andconsideration of individual patient factors, including patientpreferences, co-morbidities, previous drug use, risk factors not capturedin the FRAX model (e.g., frailty, falls, vitamin D deficiency, increasedbone turnover, interval significant decline in bone density) and possibleunder- or over-estimation of fracture risk by FRAX. Optional alternative screening schedule based on mary jane Kern., [facility]January 2011 for patients with osteopenia (based on hip BMD T-score)is as follows: * advanced osteopenia (T scores -2.00 to -2.49), BMD testing every year * moderate osteopenia (T scores -1.50 to -1.99), BMD testing every 5years mild osteopenia or normal BMD (T scores -1.50 and higher), BMD testingevery 15 years -------- FINAL REPORT -------- Dictated By: Rosamaria Foster Dictated Date: 12/04/2024 12:30 ET Assigned Physician: Rosamaria Foster Reviewed and Electronically Signed By: Rosamaria Foster Signed Date: 12/04/2024 12:32 ET Workstation ID: [id number] Transcribed By: Self Edit Transcribed Date: 12/04/2024 12:30 ET us Tricia SEPULVEDA IMG DXA PROCEDURES Final Resu lt * MG Mammo Digital Screening w Luiz bilat (11/29/2024 1:12 PM EDT) Anatomical Region Laterality Modality Breast Bilateral Mammography 12/02/2024 5:40 PM EDT Impressions 12/02/2024 5:41 PM EDT No mammographic evidence of malignancy. BREAST DENSITY: B - There are scattered areas of fibroglandular density. BI-RADS CATEGORY: 1 - NEGATIVE RECOMMENDATION: Screening bilateral mammogram is recommended in 1 year. MAMMO LOCATION: [facility], [address] [place] [address], [id number], . -------- FINAL REPORT -------- Dictated By: Gemini Faria Dictated Date: 12/02/2024 17:40 ET Assigned Physician: Gemini Faria Reviewed and Electronically Signed By: Gemini Faria Signed Date: 12/02/2024 17:41 ET Workstation ID: [id number] Transcribed By: Self Edit Transcribed Date: 12/02/2024 17:40 ET Narrative 12/02/2024 5:41 PM EDT EXAM: Screening Mammogram CLINICAL: 68 years old, Female, routine annual exam. COMPARISON: 05/19/2023 and as far back as 04/28/2020 TECHNIQUE: Bilateral MLO and CC views were obtained digitally with 3-D mammogram (digital breast tomosynthesis). Computer-aided detection was utilized in evaluation of this exam (CAD). FINDINGS: No new suspicious mass, architectural distortion, or suspicious calcifications. Procedure Note Gemini Faria MD - 12/02/2024 EXAM: Screening Mammogram CLINICAL: 68 years old, Female, routine annual exam. COMPARISON: 05/19/2023 and as far back as 04/28/2020 TECHNIQUE: Bilateral MLO and CC views were obtained digitally with 3-Dmammogram (digital breast tomosynthesis). Computer-aided detection wasutilized in evaluation of this exam (CAD). FINDINGS: No new suspicious mass, architectural distortion, or suspiciouscalcifications. IMPRESSION: No mammographic evidence of malignancy. BREAST DENSITY: B - There are scattered areas of fibroglandular density. BI-RADS CATEGORY: 1 - NEGATIVE RECOMMENDATION: Screening bilateral mammogram is recommended in 1 year. MAMMO LOCATION: [facility], [address] [place] [address], [id number], . -------- FINAL REPORT -------- Dictated By: Gemini Faria Dictated Date: 12/02/2024 17:40 ET Assigned Physician: Gemini Faria Reviewed and Electronically Signed By: Gemini Faria Signed Date: 12/02/2024 17:41 ET Workstation ID: [id number] Transcribed By: Self Edit Transcribed Date: 12/02/2024 17:40 ET Tricia SEPULVEDA IMG BI PROCEDURES Final Resul t * COLONOSCOPY Anesthesia - MAC; [facility] ENDOSCOPY (11/28/2024 2:03 PM EDT) Anatomical Region Laterality Modality Endoscopy 11/28/2024 1:38 PM EDT Impressions 11/28/2024 2:04 PM EDT - One 5 mm polyp at 50 cm proximal to the anus, removed with a cold snare. Resected and retrieved. Clips were placed. 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 - Non-bleeding internal hemorrhoids. - The examination was otherwise normal on direct and retroflexion views. Recommendation: - Discharge patient to home. - Resume previous diet. - Continue present medications. - Await pathology results. - Repeat colonoscopy for surveillance based on pathology results. - Return to GI office PRN. Narrative 11/28/2024 2:04 PM EDT [facility] GI Patient Name: Alexandra Gomez Procedure Date: 11/28/2024 1:38 PM Date of : 1955 Age: 68 Room: ROOM 16 Gender: Female Note Status: Finalized Attending MD: Franco Can MD, Procedure Date No Time: 11/28/2024 Procedure: Colonoscopy Indications: Screening for colorectal malignant neoplasm Providers: Franco Can MD Referring MD: Franco Can MD Medicines: Monitored Anesthesia Care Complications: No immediate complications. Estimated Blood Loss: Estimated blood loss: none. Procedure: Pre-Anesthesia Assessment: - ASA Grade Assessment: II - A patient with mild systemic disease. - After reviewing the risks and benefits, the patient was deemed in satisfactory condition to undergo the procedure. After I obtained informed consent, the scope was passed under direct vision. Throughout the procedure, the patient's blood pressure, pulse, and oxygen saturations were monitored continuously.The Colonoscope was introduced through the anus and advanced to the cecum, identified by appendiceal orifice and ileocecal valve. The colonoscopy was performed without difficulty. The patient tolerated the procedure well. The quality of the bowel preparation was good. Findings: A 5 mm polyp was found at 50 cm proximal to the anus. The polyp was sessile. The polyp was removed with a cold snare. Resection and retrieval were complete. Estimated blood loss was minimal. To prevent bleeding after the polypectomy, two hemostatic clips were successfully placed. 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 There was no bleeding at the end of the procedure. Non-bleeding internal hemorrhoids were found during retroflexion. The hemorrhoids were small. The exam was otherwise without abnormality on direct and retroflexion views. Procedure Code(s): --- Professional --- 30193, Colonoscopy, flexible; with removal of tumor(s), polyp(s), or other lesion(s) by snare technique Diagnosis Code(s): --- Professional --- Z12.11, Encounter for screening for malignant neoplasm of colon D12.6, Benign neoplasm of colon, unspecified CPT copyright 2020 [employer]. All rights reserved. The codes documented in this report are preliminary and upon photograph editor review may be revised to meet current compliance requirements. Franco Can MD 11/28/2024 2:04:26 PM This report has been signed electronically.Franco Can MD Number of Addenda: 0 Note Initiated On: 11/28/2024 1:38 PM Scope In: Scope Out: Endoscopy Department at [facility] - [address] [place] [phone] Procedure Note Franco Can MD - 11/28/2024 [facility] GI Patient Name: Alexandra Gomez Procedure Date: 11/28/2024 1:38 PM Date of : 1955 Age: 68 Room: ROOM 16 Gender: Female Note Status: Finalized Attending MD: Franco Can MD, Procedure Date No Time: 11/28/2024 Procedure: Colonoscopy Indications: Screening for colorectal malignant neoplasm Providers: Franco Can MD Referring MD: Franco Can MD Medicines: Monitored Anesthesia Care Complications: No immediate complications. Estimated Blood Loss: Estimated blood loss: none. Procedure: Pre-Anesthesia Assessment: - ASA Grade Assessment: II - A patient with mild systemic disease. - After reviewing the risks and benefits, thepatient was deemed in satisfactory condition to undergo the procedure. After I obtained informed consent, the scope was passed under direct vision. Throughout theprocedure, the patient's blood pressure, pulse, and oxygen saturations were monitored continuously.The Colonoscope was introduced through the anus and advanced to the cecum, identified by appendiceal orifice and ileocecal valve. The colonoscopy was performed without difficulty. The patient tolerated the procedure well. The quality of the bowel preparation was good. Findings: A 5 mm polyp was found at 50 cm proximal to theanus. The polyp was sessile. The polyp was removed with a cold snare. Resection and retrieval were complete. Estimated blood loss was minimal. To preventbleeding after the polypectomy, two hemostatic clips were successfully placed. 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 There was no bleeding at the end of the procedure. Non-bleeding internal hemorrhoids were found during retroflexion. The hemorrhoids were small. The exam was otherwise without abnormality ondirect and retroflexion views. Procedure Code(s): --- Professional --- 83807, Colonoscopy, flexible; with removal of tumor(s), polyp(s), or other lesion(s) by snare technique Diagnosis Code(s): --- Professional --- Z12.11, Encounter for screening for malignantneoplasm of colon D12.6, Benign neoplasm of colon, unspecified CPT copyright 2020 [employer]. All rights reserved. The codes documented in this report are preliminary and upon photograph editor reviewmay be revised to meet current compliance requirements. Franco Can MD 11/28/2024 2:04:26 PM This report has been signed electronically.Franco Can MD Number of Addenda: 0 Note Initiated On: 11/28/2024 1:38 PM Scope In: Scope Out: Endoscopy Department at [facility] - [address] [place] [id number] IMPRESSION: - One 5 mm polyp at 50 cm proximal to the anus, removed with a cold snare. Resected and retrieved. Clips were placed. 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 - Non-bleeding internal hemorrhoids. - The examination was otherwise normal on directand retroflexion views. Recommendation: - Discharge patient to home. - Resume previous diet. - Continue present medications. - Await pathology results. - Repeat colonoscopy for surveillance based on pathology results. - Return to GI office PRN. Franco Can MD GI~PROCEDURE ORDERABLES Final Result * Lipid panel with reflex to direct LDL (11/07/2024 9:57 AM EDT) Cholesterol 156 0 - 200 mg/dL LAB CHEMISTRY METHOD 11/07/2024 3:30 PM EDT [facility] Triglycerides 98 0 - 150 mg/dL LAB CHEMISTRY METHOD 11/07/2024 3:30 PM EDT [facility] HDL 47 >=40 mg/dL LAB CHEMISTRY METHOD 11/07/2024 3:30 PM [facility] LDL Calculated 89 0 - 100 mg/dL LAB CHEMISTRY METHOD 11/07/2024 3:30 PM EDT [facility] VLDL Cholesterol Cornell 19.6 mg/dL LAB CHEMISTRY METHOD 11/07/2024 3:30 PM EDT [facility] Non HDL Chol. (LDL+VLDL) 109 <145 mg/dL LAB [facility] Chol/HDL Ratio 3.3 0.0 - 4.4 LAB CHEMISTRY METHOD 11/07/2024 3:30 PM [facility] Blood Venous blood specimen / Unknown Venipuncture / Unknown 11/07/2024 9:57 AM EDT 11/07/2024 9:57 AM EDT [facility] SEPULVEDA LAB BLOOD ORDERABLES Final Re sult [facility] [address] [place] [address], [place] [phone] * (ABNORMAL) Basic metabolic panel (11/07/2024 9:57 AM EDT) Sodium 141 133 - 145 mmol/L LAB CHEMISTRY METHOD [facility] Potassium 4.2 3.5 - 5.5 mmol/L LAB CHEMISTRY METHOD 11/07/2024 3:30 PM [facility] Chloride 106 96 - 110 mmol/L LAB CHEMISTRY METHOD 11/07/2024 3:30 PM [facility] CO2 31 21 - 32 mmol/L LAB CHEMISTRY METHOD 11/07/2024 3:30 PM [facility] Anion Gap 4 3 - 11 LAB CHEMISTRY METHOD 11/07/2024 3:30 PM [facility] Glucose 119(H) 70 - 100 mg/dL LAB CHEMISTRY METHOD 11/07/2024 3:30 PM [facility] BUN 19 5 - 25 mg/dL LAB CHEMISTRY METHOD 11/07/2024 3:30 PM [facility] Creatinine 0.90 0.50 - 1.10 mg/dL LAB CHEMISTRY METHOD 11/07/2024 3:30 PM [facility] eGFR 70 >=60 mL/min/1. 73m2 LAB CHEMISTRY METHOD 11/07/2024 3:30 PM [facility] Comment:Calculation based on the Chronic Kidney Disease Epidemiology Collaboration (CKD-EPI) equation refit without adjustment for race. BUN/Creatinine Ratio 21.1 LAB CHEMISTRY METHOD 11/07/2024 3:30 PM EDT [facility] Calcium 9.4 8.5 - 10.5 mg/dL LAB CHEMISTRY METHOD 11/07/2024 3:30 PM EDT [facility] Blood Venous blood specimen / Unknown Venipuncture / Unknown 11/07/2024 9:57 AM EDT 11/07/2024 9:57 AM EDT [facility] LAB BLOOD ORDERABLES Final Re sult [facility] [address] [place] [address], * Falls Risk Assessment (11/03/2023) Pathologist [facility] Falls Risk Assessment abstracted Historical Provider MD HEALTH MAINTENANCE Final Result * Depression Screening (11/03/2023) Pathologist [facility] Depression Screening abstracted Historical Provider MD HEALTH MAINTENANCE Final Result * Hepatitis C Screening (09/05/2016) Pathologist [facility] Hepatitis C Screening abstracted [facility] Provider MD HEALTH MAINTENANCE Final Result from Last 3 Months or Most Recently Relevant to Health Maintenance Insurance [employer] MEDICARE ADVANTAGE MERGED WITH [facility] Care Teams Furniture Builder Relationship Specialty Start Date End Date Martina Pedraza MD [address] [place] [phone] PCP - General 04/22/22
--- OUTSIDE RECORDS SUMMARY | 2025-03-31 22:55 | XMS_ITS | Encounter Summary ---
Author Organization [employer] Address [address] [place] [address] Care Team Providers Care Technology Project Manager Name Role Phone Martina Pedraza MD Primary Care Pr ovid Reason for Referral * Consultation (Routine) - Authorized Specialty Diagnoses / Procedures Referred By Karie senior Referred To Contact Vascular Surgery Diagnoses Venous insufficiency of right leg Varicose veins of both lower extremities with pain Martina Pedraza MD [address] [place] [address] Phone: tel: fax: Vascular Surgery [facility] [address] [phone] Phone: tel: fax: Referral ID Status Reason Start Date Expiration Date Visits Requested Visits Authorized [id number] Authorized Specialty Services Required 01/28/2026 1 1 Encounter Details Date Type Department Care Team (Late st Contact Info) Description 01/28/2025 Results Follow-Up Adult Medicine [address] [phone] Martina Pedraza MD [address] [place] [address] Social History Tobacco Use Types Packs/Day Years Used Date Smoking Tobacco: Former Cigarettes 6 0 04/17/1973 - 04/17/1979 Smokeless Tobacco: Never Alcohol Use Standard Drinks/Week Comments No 0 [...] care for your loved ones. For example, children's service worker or elderly care for an older adult? [...] AM EDT Sexual Orientation Not on file documented as of this encounter Plan of Treatment Upcoming Encounters Date Type Department Care Team (Late st Contact Info) Description 04/02/2025 10:00 AM EST Office Visit Adult Medicine [address] [phone] Martina Pedraza MD [address] [place] [address] 04/29/2025 11:30 AM EST Office Visit Endocrinology [address] [phone] Nikki Shankar PA [address] [place] [address] 04/29/2025 1:30 PM EST Consult Vascular Surgery - [place] [address] [phone] Tami Ibarra PA [address] [address] Scheduled Referrals Name Type Priority Associated Diagnoses Orde r Schedule Ambulatory referral to Vascular Surgery Outpatient Referral Routine Venous insufficiency of right leg Varicose veins of both lower extremities with pain 1 Occurrences starting 01/28/2025 until 01/28/2026 documented as of this encounter Visit Diagnoses Diagnosis Venous insufficiency of right leg- Primary Varicose veins of both lower extremities with pain documented in this encounter Orders General Supply Count Last Ordered Date First Or dered Date COMPRESSION STOCKINGS 1 01/28/2025 documented in this encounter Additional Health Concerns Assessment Noted Time PHQ-9 Depression Total Score: 0 11/11/19 25 4:31 PM EDT documented as of this encounter Care Teams Technology Project Manager Relationship Specialty Start Date End Date Martina Pedraza MD [address] [place] [phone] PCP - General 04/22/22 documented as of this encounter
== END ==
LOC: HO.SL 19:30
PROVIDERS: PCP Family Medicine; Visit Provider Nurse Practitioner Family
DX: G47.33 Obstructive sleep apnea (adult) (pediatric) (principal)
CPT/HCPCS: 95811

== ENCOUNTER → 2025-03-31 21:04 | Outpatient (BNV) | payer MEDICARE, SELFPAY | PROVIDERS: PCP Family Medicine; Visit Provider Psychiatry & Neurology Neurology | DX: G47.33 Obstructive sleep apnea (adult) (pediatric) (principal) | CPT/HCPCS: 95811 ==